=== PATIENT | male | born 1965 ===

== ENCOUNTER 2016-09-06 10:07 | Emergency (ER) | payer OTHER ==
[2016-09-06 10:24] VITALS: BP 149/85; PULSE 70; RESP 16; TEMP 97; O2SAT 100
[2016-09-06] MEDS ORDERED: TDAP Vaccine 0.5 mL Syr IM ONE (11:17)
[2016-09-06] MEDS ORDERED: Amoxicillin-Clav 500-125 mg Tab PO ONE (11:30)
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
[2016-09-06 12:07] LABS: BASO % 0.4 % (0.0-2.0); EOS # 0.4 K/uL (0.0-0.7); EOS % 4.9 % (0.0-4.0); HEMATOCRIT 47.1 % (35.0-51.0); LYMPH # 1.8 K/uL (1.0-4.3); LYMPH % 24.9 % (20.0-40.0); MEAN CELL VOLUME 92.7 fl (80.0-94.0); MEAN CORPUSCULAR HEMOGLOBIN 31.6 pg (27.0-31.0); MEAN CORPUSCULAR HGB CONC 34.1 g/dL (33.0-37.0); MEAN PLATELET VOLUME 11.7 fl (7.2-11.7); MONO # 0.5 K/uL (0.0-0.8); MONO % 7.5 % (0.0-10.0); NEUT # 4.6 K/uL (1.8-7.0); NEUT % 62.3 % (50.0-75.0); NRBC % 0.2 % (0.0-0.0); RED CELL DISTRIBUTION WIDTH 14.1 % (11.5-14.5); WHITE BLOOD COUNT 7.3 K/uL (4.8-10.8)
[2016-09-06 12:11] LABS: CHLORIDE 104 mmol/L (98-107); POTASSIUM 4.2 MMOL/L (3.6-5.0); SODIUM 142 mmol/l (132-148)
[2016-09-06 12:13] LABS: AST/SGOT 29 U/L (17-59); BILIRUBIN,TOTAL 0.5 mg/dl (0.2-1.3); CARBON DIOXIDE 24 mmol/L (22-30); GFR AFRICAN-AMERICAN > 60
[2016-09-06 12:14] LABS: ALB/GLOB RATIO 1.3 (1.0-2.1); ALKALINE PHOSPHATASE 127 U/L (38-126); ALT/SGPT 33 U/L (21-72); BLOOD UREA NITROGEN 10 mg/dl (9-20); CALCIUM 9.3 mg/dL (8.4-10.2); GLUCOSE,RANDOM 101 mg/dL (75-110); TOTAL PROTEIN 8.2 G/DL (6.3-8.2)
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
== END 2016-09-06 13:34 | disposition home or self-care (01) ==
LOC: H.ER 10:07
DX: S41.132A Puncture wound without foreign body of left upper arm, initial encounter (principal); R22.32 Localized swelling, mass and lump, left upper limb; Y04.1XXA Assault by human bite, initial encounter; Y99.0 Civilian activity done for income or pay